=== PATIENT | male | born 1975 | race Caucasian/White ===

== ENCOUNTER → 2024-06-03 | Outpatient (CLI) | payer BC, SELFPAY ==
[2024-06-03 12:51] LABS: Absolute Lymphocyte Count 1.55 X10^3/uL (0.83-4.51); Absolute Neutrophil Count 4.7 X10^3/uL (2.0-7.7); Basophil# 0.03 X10^3/uL; Basophil% 0.4 % (0-1); Eosinophil# 0.06 X10^3/uL; Eosinophils% 0.9 % (0-5); Hematocrit 48.6 % (40-54); Hemoglobin 16.5 g/dL (13.0-16.5); Lymphocyte # 1.55 X10^3/ul (0.83-4.51); Lymphocyte % 22.6 % (19-41); Mean Corpuscular Hgb 29.7 pg (27.0-32.0); Mean Corpuscular Volume 87.6 fL (80-94); Mean Platelet Vol. 9.7 fl (6.2-12.0); Monocyte# 0.56 X10^3/uL; Monocyte% 8.2 % (0-10); NRBC Flagged by Analyzer 0 % (0-5); Neutrophil # 4.65 X10^3/uL (2.7-7.7); Neutrophil % 67.6 % (47-70); Platelet Count 235 K/mm3 (150-450); RBC Distribution Width SD 38.5 fl (35.1-43.9); Red Blood Count 5.55 M/mm3 (4.6-6.2); White Blood Count 6.9 K/mm3 (4.4-11.0)
[2024-06-03 13:28] LABS: ALB/GLOB Ratio 1.1 RATIO (0.9-2.4); AST(SGOT) 26 U/L (15-37); Alanine Aminotransfer ALT/SGPT 38 U/L (16-61); Albumin, Serum 3.7 g/dL (3.2-5.0); Alkaline Phosphatase 72 U/L (45-117); Anion Gap 3 (5-15); BUN 15 mg/dL (7-18); Calcium,Total 8.7 mg/dL (8.5-10.1); Chloride 107 mmol/L (98-107); Cholesterol 248 mg/dL (200); EST Glomerular Filtration Rate 85 mL/min (>60); Est Glom Filt Rate - Afr Amer 103 mL/min (>60); Globulin 3.5 g/dL (2.2-4.2); Glucose 91 mg/dL (74-106); High Density Lipoprotein 64 mg/dL; PSA,Total - Annual Screen 0.41 ng/mL (0.00-4.00); Potassium 4.1 mmol/L (3.5-5.1); Protein, Total 7.2 g/dL (6.4-8.2); Sodium Level 137 mmol/L (136-145); Triglycerides 127 mg/dL; Very Low Density Lipoprotein 25 mg/dL (5-40)
[2024-06-03 14:53] LABS: Hemoglobin A1c 4.8 % (3.8-5.6)
== END | disposition home or self-care (01) ==
LOC: VSLAB 09:17
PROVIDERS: Visit Provider Family Medicine
DX: Z13.6 Encounter for screening for cardiovascular disorders (principal); Z13.228 Encounter for screening for other metabolic disorders; Z12.5 Encounter for screening for malignant neoplasm of prostate
CPT/HCPCS: 36415; 80053; 80061; 83036; 84153; 84443; 85025; G0103

== ENCOUNTER 2024-08-03 07:27 | Day surgery (SDC) | payer BC, SELFPAY ==
[2024-08-03] VITALS (8 sets, daily range): BP systolic 104–118; BP diastolic 73–89; PULSE 16–78; RESP 16; TEMP 36.1–37; O2SAT 95–100; BMI 25.8
--- OUTSIDE RECORDS SUMMARY | 2024-08-03 07:33 | XMS RPT_ITS | CCD ---
Author Organization [facility] Inform ion Partnership [facility] Care Team Providers Care Press Writer Name Role Phone Unavailable Primary Care Provider REBECA Brenner Referring Unavailable SVETA DASILVA Attending Unavailabl e Medications Current Medications Medication Drug Class(es) Dates Sig (Normalized) Sig (Original) oxymetazoline hydrochloride 10 mg/ml topical cream (1 source) Start: 02-18-2024 oxymetazoline (RHOFADE) 1 % crea Apply a pea-sized amount to entire face once daily. 30 g 4 02/18/2024 Active Problems Active Problems Problem Classification Problem Date Documented Da te Episodic/Chronic Joint disorders and dislocations; trauma-related (1 source) Traumatic arthropathy of the hand; Translations: [Traumatic arthropathy, unspecified hand] Onset: 05-02-2010 05-02-2010 Chronic Other inflammatory condition of skin (1 source) Rosacea; Translations: [Rosacea, unspecified] 02-18-2024 Chronic Other inflammatory condition of skin (1 source) Rosacea, unspecified; Translations: [Rosacea] Onset: 02-18-2024 Chronic Residual codes; unclassified (1 source) Patient encounter status; Translations: [Encounter for cosmetic surgery] 02-18-2024 Episodic Residual codes; unclassified (1 source) Encounter for cosmetic surgery; Translations: [Encounter for cosmetic procedure] Onset: 02-18-2024 Episodic Past or Other Problems Problem Classification Problem Date Documented Da te Episodic/Chronic Other connective tissue disease (1 source) Pain in limb; Translations: [Pain in unspecified limb] Onset: 05-02-2010 05-02-2010 Episodic Results Test Name Value Interpretation Reference Range Facil ity CNOVon 02-18-2024 CNOV Office Visit (DERBMN ) KAY RAMEY ([id number]) 1975 M Date Time Provider Department 02/18/24 2:30 PM SVETA DASILVA During your visit today, we recorded the following information about you: Sveta Dasilva MD 02/18/2024 4:14 PM Signed New Cosmetic Patient Kay Ramey male presents seeking treatment for and further management of rosacea. 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 Examination of the face revealed: - Background erythema with overlying telangiectases on central face Photos obtained: yes A/P: 1. Rosacea, telangiectasias -Discussed rosacea and potential triggers including: sunlight, caffeine, spicy food, alcohol, chocolate. -Recommend avoidance of triggers and daily photoprotection -Start Rhofade to affected areas on bilateral cheeks- [facility] -Consider V beam to improve appearance of lesions, quoted 400 per treatment, needs approximately 4-6 treatments. -Laser reviewed at length including treatment expectations, need for multiple treatment and risks including pain, swelling, redness, blistering, hyper/hypopigmentation, texture change, scarring. - patient understands no treatment with cunningham- states he does have slight cunningham today and still would like to undergo treatment. He understands risks and would like to proceed LASER SURGERY PROCEDURAL TIME OUT: Time out verification includes: Audible time-out documented: Yes. Time: 2:59 PM Two Patient Identifiers Correct side and site marking Accurate Consent Agreement on the procedure to be done Correct Positioning Imaging and Test Results Properly Labeled and Displayed if applicable Safety Precautions Based on Patient History or Medication ANESTHETIC: Raffaeleller DX: Rosacea LOCATION: cheeks LASER PROCEDURE: Non-Ablative Laser Phototherapy: PROTECTIVE EYEWEAR APPLIED TO PATIENT'S EYES: goggles. ALL PERSONNEL IN THE ROOM ARE WEARING PROTECTIVE GOGGLES SPECIFIC TO THE LASER WAVELENGTH FOR THIS TREATMENT. TREATMENT #: 7 (last 2013) LASER: V BEAM SPOT SIZE:10 mm; ENERGY FLUENCE: 7J/cm2; MODE (TIME): 10 msec; SPRAY DELAY: 30/20;NUMBER OF PULSES: 197 COMMENTS: Patient tolerated procedure well. and Post care instructions provided, understanding verbalized. Sign Out Discussion: Completed Post op instructions given / with verbal understanding Skin Care after Laser Treatment. Charge Code: 400 vbeam Return to clinic for vbeam in fall The documentation for this note was completed by Usha Vernon RN acting as scribe for Sveta Dasilva MD. February 18, 2024 2:33 PM. I agree with the Chief Complaint, ROS, and Past Histories independently gathered by the clinical technology support analyst and the remaining scribed note accurately describes my personal service to the patient. Sveta Dasilva MD. February 18, 2024 Usha Vernon, [facility] 02/18/2024 2:52 PM Signed V-beam Post Care Instructions It is normal for the skin to be red and swollen after your laser treatment. Most of the redness and swelling subsides within 24 to 48 hours, but occasionally can last for up to one week. -It is fine to wear makeup on the treated area the day after treatment -Do not rub, scratch, or pick at the treated area -You may apply ice to reduce swelling and discomfort for the first 4 hours after your treatment- it is best to ice immediately after your treatment and for 10 minutes of each hour for the 4 hours after your treatment -Do not exercise for 24 hours after your treatment -Please call the office immediately if the area becomes tender, reddened or shows signs of infection. - Avoid exposure to the sun. If sun exposure is expected, apply an SPF 30 or higher sunblock to prevent pigmentation changes until the lesion is healed. Care Of The Treated Area -You can apply a gentle moisturizer or Aqpahor/Vaseline to the treated area. It is important to keep the area moist until healed. -Showers are permitted, but gently pat the area dry. Do not rub with a towel or washcloth as the area is extremely delicate while the bruising (purpura) are present. -Any discomfort you may have (usually not lasting more than a few hours, if any) can be relieved with acetaminophen (Tylenol) or ice packs. If you have any questions or concern, please call the office where you had your treatment. Referring Provider: REBECA REYES [[id number]] Allergies As of (more content not included)... Normal [facility] Encounters Encounter Date Encounter Type Care Provider Facility Start: 02-18-2024 End: 02-19-2024 ambulatory REBECA REYES Facility:[facility] Start: 02-18-2024 End: 02-18-2024 Patient encounter procedure Sveta Dasilva MD Work Phone: Dermatology Comment on above: Rosacea (Primary Dx) ; Encounter for cosmetic procedure Plan of Treatment Date Care Activity Detail Author Start: 06-13-2024 Influenza vaccination Influenz a Vaccine (Season Ended) [facility] Start: 10-13-2023 Behavioral Health Screening Behavioral Health Screening [facility] Start: 06-13-2023 Covid-19 Vaccine ( season) Covid-19 Vaccine ( season) [facility] Start: 2021 Diabetes Screening Diabetes Screenin g [facility] Start: 2021 Screening for malign ant neoplasm of colon [facility] Start: 2011 Lipid panel Lipid Screening [facility] Start: 1995 Hepatitis B Vaccine (1 of 3 - 19+ 3-dose series) Hepatitis B Vaccine (1 of 3 - 19+ 3-dose series) [facility] Start: 1995 Urine microalbumin profile DTa P,Tdap,Td Vaccine (1 - Tdap) [facility] Start: 1994 Hepatitis C screening Hepatitis C Sc linda [facility] Start: 1994 HIV screening HIV Screening [facility] Social History Date Type Detail Facility Tobacco smoking stat us NHIS Tobacco smoking consumption unknown [facility] Start: 02-18-2024 History of Social function [facility] Start: 02-18-2024 Area Deprivation Index [facility] National Score (1-10 0), lower number is lower risk 54 [facility] Start: 1975 Sex Assigned At Not on file [facility] Progress note 02-18-2024 Note Date & Type Note Facility 02-18-2024 Note HNO ID: [id number] Author: SVETA DASILVA MD Service: ? Author Type: Physician Type: Progress Notes Filed: 02/18/2024 16:14 Note Text: New Cosmetic Patient Kay Ramey male presents seeking treatment for and further management of rosacea. 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 Examination of the face revealed: - Background erythema with overlying telangiectases on central face Photos obtained: yes A/P: 1. Rosacea, telangiectasias -Discussed rosacea and potential triggers including: sunlight, caffeine, spicy food, alcohol, chocolate. -Recommend avoidance of triggers and daily photoprotection -Start Rhofade to affected areas on bilateral cheeks- [facility] -Consider V beam to improve appearance of lesions, quoted 400 per treatment, needs approximately 4-6 treatments. -Laser reviewed at length including treatment expectations, need for multiple treatment and risks including pain, swelling, redness, blistering, hyper/hypopigmentation, texture change, scarring. - patient understands no treatment with cunningham- states he does have slight cunningham today and still would like to undergo treatment. He understands risks and would like to proceed LASER SURGERY PROCEDURAL TIME OUT: Time out verification includes: Audible time-out documented: Yes. Time: 2:59 PM Two Patient Identifiers Correct side and site marking Accurate Consent Agreement on the procedure to be done Correct Positioning Imaging and Test Results Properly Labeled and Displayed if applicable Safety Precautions Based on Patient History or Medication ANESTHETIC: Chiller DX: Rosacea LOCATION: cheeks LASER PROCEDURE: Non-Ablative Laser Phototherapy: PROTECTIVE EYEWEAR APPLIED TO PATIENT'S EYES: goggles. ALL PERSONNEL IN THE ROOM ARE WEARING PROTECTIVE GOGGLES SPECIFIC TO THE LASER WAVELENGTH FOR THIS TREATMENT. TREATMENT #: 7 (last 2013) LASER: V BEAM SPOT SIZE:10 mm; ENERGY FLUENCE: 7J/cm2; MODE (TIME): 10 msec; SPRAY DELAY: 30/20;NUMBER OF PULSES: 197 COMMENTS: Patient tolerated procedure well. and Post care instructions provided, understanding verbalized. Sign Out Discussion: Completed Post op instructions given / with verbal understanding Skin Care after Laser Treatment. Charge Code: 400 vbeam Return to clinic for vbeam in fall The documentation for this note was completed by Usha Vernon RN acting as scribe for Sveta Dasilva MD. February 18, 2024 2:33 PM. I agree with the Chief Complaint, ROS, and Past Histories independently gathered by the clinical technology support analyst and the remaining scribed note accurately describes my personal service to the patient. Sveta Dasilva MD. February 18[facility]24 Patient Instructions Note Date & Type Note Facility 02-18-2024 Usha Barrett RN - 02/18/2024 2:52 PM EDT V-beam Post Care Instructions It is normal for the skin to be red and swollen after your laser treatment. Most of the redness and swelling subsides within 24 to 48 hours, but occasionally can last for up to one week. -It is fine to wear makeup on the treated area the day after treatment -Do not rub, scratch, or pick at the treated area -You may apply ice to reduce swelling and discomfort for the first 4 hours after your treatment- it is best to ice immediately after your treatment and for 10 minutes of each hour for the 4 hours after your treatment -Do not exercise for 24 hours after your treatment -Please call the office immediately if the area becomes tender, reddened or shows signs of infection. - Avoid exposure to the sun. If sun exposure is expected, apply an SPF 30 or higher sunblock to prevent pigmentation changes until the lesion is healed. Care Of The Treated Area -You can apply a gentle moisturizer or Aqpahor/Vaseline to the treated area. It is important to keep the area moist until healed. -Showers are permitted, but gently pat the area dry. Do not rub with a towel or washcloth as the area is extremely delicate while the bruising (purpura) are present. -Any discomfort you may have (usually not lasting more than a few hours, if any) can be relieved with acetaminophen (Tylenol) or ice packs. If you have any questions or concern, please call the office where you had your treatment. documented in this encounter [facility] History of Present illness Narrative 02-18-2024 Sveta Dasilva MD - 02/18/2024 2:30 PM EDT Note Date & Type Note Facility 02-18-2024 History of Presen t illness Narrative New Cosmetic Patient Kay Ramey male presents seeking treatment for and further management of rosacea. 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 Examination of the face revealed: - Background erythema with overlying telangiectases on central face Photos obtained: yes A/P: 1. Rosacea, telangiectasias -Discussed rosacea and potential triggers including: sunlight, caffeine, spicy food, alcohol, chocolate. -Recommend avoidance of triggers and daily photoprotection -Start Rhofade to affected areas on bilateral cheeks- [facility] -Consider V beam to improve appearance of lesions, quoted 400 per treatment, needs approximately 4-6 treatments. -Laser reviewed at length including treatment expectations, need for multiple treatment and risks including pain, swelling, redness, blistering, hyper/hypopigmentation, texture change, scarring. - patient understands no treatment with cunningham- states he does have slight cunningham today and still would like to undergo treatment. He understands risks and would like to proceed ----- LASER SURGERY PROCEDURAL TIME OUT: Time out verification includes: Audible time-out documented: Yes. Time: 2:59 PM Two Patient Identifiers Correct side and site marking Accurate Consent Agreement on the procedure to be done Correct Positioning Imaging and Test Results Properly Labeled and Displayed if applicable Safety Precautions Based on Patient History or Medication ANESTHETIC: Giovanny DX: Rosacea LOCATION: cheeks LASER PROCEDURE: Non-Ablative Laser Phototherapy: PROTECTIVE EYEWEAR APPLIED TO PATIENT'S EYES: goggles. ALL PERSONNEL IN THE ROOM ARE WEARING PROTECTIVE GOGGLES SPECIFIC TO THE LASER WAVELENGTH FOR THIS TREATMENT. TREATMENT #: 7 (last 2013) LASER: V BEAM SPOT SIZE:10 mm; ENERGY FLUENCE: 7J/cm2; MODE (TIME): 10 msec; SPRAY DELAY: 30/20;NUMBER OF PULSES: 197 COMMENTS: Patient tolerated procedure well. and Post care instructions provided, understanding verbalized. Sign Out Discussion: Completed Post op instructions given / with verbal understanding Skin Care after Laser Treatment. Charge Code: 400 vbeam Return to clinic for vbeam in fall The documentation for this note was completed by Usha Vernon RN acting as scribe for Sveta Dasilva MD. February 18, 2024 2:33 PM. I agree with the Chief Complaint, ROS, and Past Histories independently gathered by the clinical technology support analyst and the remaining scribed note accurately describes my personal service to the patient. Sveta Dasilva MD. February 18, 2024 documented in this encounter [facility] Evaluation note Note Date & Type Note Facility Evaluation note Diagnosis Rosacea- Primary Encounter for cosmetic procedure documented in this encounter [facility] Summary Purpose Family History No Family History Records Found Advance Directives No Advanced Directives Records Found Additional Source Comments Source Comments (unrecognize d section and content) In the event this informatio n is protected by the Federal Confidentiality of Alcohol and Drug Abuse Patient Records regulations: The Federal rules restrict any use of the information to criminally investigate or prosecute any alcohol or drug abuse patient.[facility] Reason for Visit (unrecogniz ed section and content) Reason Comments Consult Specialty Diagnoses / Procedures Referred By Contac t Referred To Contact PLASTIC SURGERY Diagnoses VBEAM CONSULT Procedures VBEAM CONSULT Rebeca Reyes MD [address] [place] [address] [facility] [address] [place] [address] Referral ID Status Reason Start Date Expiration Date V isits Requested Visits Authorized [id number] Closed Financial Clearance Required - Self Pay OON/Self Pay Override 12/31/2023 02/29/2024 1 1 (unrecognized sect ion and content) No Status Records Found INFORMATION SOURCE (unrecogn ized section and content) DATE CREATED AUTHOR 02/23/[address] [facility] FOR RECORDS PERTAINING TO PATIENTS WHO ARE OR HAVE BEEN ENROLLED IN A CHEMICAL DEPENDENCY/SUBSTANCEABUSE PROGRAM, SOME INFORMATION MAY BE OMITTED. This clinical summary was aggregated from multiple sources. Caution should be exercised in using it in the provision of clinical care. This summary normalizes information from multiple sources, and as a consequence, information in this document may materially change the coding, format and clinical context of patient data. In addition, data may be omitted in some cases. CLINICAL DECISIONS SHOULD BE BASED ON THE PRIMARY CLINICAL RECORDS. [employer] [facility]. provides no warranty or guarantee of the accuracy or completeness of information in this document.
--- NOTE | 2024-08-03 08:27 | PRE.ANES_ITS ---
ASA Classification* ASA Classification ASA Classification: 2 Assessment & Plan Anesthesia* Anesthesia Assessment Anesthesia Assessment: Discussed sedation and/or anesthesia options, risks, benefits, and alternatives with patient/parents/legal guardian/POA. Questions invited. The patient/parents/legal guardian/POA seems to understand and agrees to proceed with anesthesia plan. Reviewed the physical assessment, medical history, allergy history and patient home medications list prior to surgery/procedure/anesthetic and documented any changes. Performed airway and anesthesia risk assessments. Anesthesia Type Anesthesia Type: MAC History Source History Obtained from:: Patient and Chart Anesthesia Focused Assessment* Temperature: 97 F Pulse Rate: 76 Blood Pressure: 118/89 Respiratory Rate: 16 Pulse Ox: 100 Oxygen Delivery Method: Room Air Airway Assessment Mouth opens: >3 cm Mallampati Score: II Neck Range of motion (ROM): Full ROM Focused Labs Anesthesia Preop lab: CBC WBC 6.9 K/mm3 (4.4-11.0) 06/03/24 09:17 RBC 5.55 M/mm3 (4.6-6.2) 06/03/24 09:17 Hgb 16.5 g/dL (13.0-16.5) 06/03/24 09:17 Hct 48.6 % (40-54) 06/03/24 09:17 Plt Count 235 K/mm3 (150-450) 06/03/24 09:17 CHEMISTRY Potassium 4.1 mmol/L (3.5-5.1) 06/03/24 09:17 Sodium 137 mmol/L (136-145) 06/03/24 09:17 BUN 15 mg/dL (7-18) 06/03/24 09:17 Creatinine 1.00 mg/dL (0.70-1.30) 06/03/24 09:17 Glucose 91 mg/dL (74-106) 06/03/24 09:17 TSH 3.020 uIU/mL (0.358-3.740) 06/03/24 09:17 COAG Pre-Assessment Diagnosis/Proposed Procedure Planned Operative Procedure(s): cscope Anesthesia History Anesthesia History - full decator operator: Anesthesia History - full decator operator Hx Hospitalization No 07/29/24 15:24 Any Problems With Anesthesia No 07/29/24 15:24 Cholinesterase deficiency No 07/29/24 15:24 You/Your Family Experience No 07/29/24 15:24 fever (hyperthermia) with Relationship Recent Exposure to Contagious No 08/03/24 08:10 Disease Does patient have nerve No 07/29/24 15:24 stimulator Patient instructed to have device shut off --Does patient have Pacemaker No 08/03/24 08:10 or ICD? When Was Last Pacemaker Check QUESTION #4 FULL TEXT: You/Your Family Experience fever (hyperthermia) with Anesthesia Last Oral Intake Last Oral intake: Last Oral Intake NPO since 04:00 08/03/24 08:10 Meds taken in AM with sips of No 08/03/24 08:10 water? Meds patient instructed to take am of surgery Any additional information?: Yes NPO since: 04:00 (Patient finished prep at 4 AM.) PONV PONV - full decator operator: PONV - full decator operator Female No 07/29/24 15:24 HX of Motion Sickness No 07/29/24 15:24 HX of N/V After Surgery No 07/29/24 15:24 Non-Smoker Yes 07/29/24 15:24 Duration of Surgery greater No 07/29/24 15:24 than 60 minutes Number of Risk Factors 1 07/29/24 15:24 PONV Score Low Risk 07/29/24 15:24 Height & Weight Height & Weight: Anesthesia: Height & Weight Height 5 ft 11 in 08/03/24 08:10 Weight: 84 kg 08/03/24 08:10 Body Mass Index (BMI) 25.8 08/03/24 08:10 Respiratory Assessment Respiratory Assessment - full decator operator: Respiratory Tract Infection Hx - full decator operator Hx Respiratory Tract Infection No 07/29/24 15:24 STOP Sleep Apnea STOP Sleep Apnea - full decator operator: STOP Sleep Apnea - full decator operator Hx Hypertension No 07/29/24 15:24 Hx Sleep Apnea No 07/29/24 15:24 CPAP BIPAP Do you snore loudly (louder No 07/29/24 15:24 than talking or can be heard Do you often feel tired/ No 07/29/24 15:24 fatigued/ sleepy during daytime? Has anyone observed you stop No 07/29/24 15:24 breathing during sleep? STOP Results Negative 07/29/24 15:24 QUESTION #5 FULL TEXT : Do you snore loudly (louder than talking or can be heard through closed doors)? 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 Specify any problems Hx of Preganancy in last 3 N/A 07/29/24 15:24 Months Nurse Filling Out Transfusion NBUCHER 07/29/24 15:24 & Questions: Date: 07/29/24 07/29/24 15:24 Time: 1507/29/24 15:24 Patient unable to answer at this time (ie. confused, unrespo /Reproduction History /Reproductive History - full decator operator: /Reproductive Hx- full decator operator Hx Now No 07/29/24 15:24 Gestational Age (in weeks): EDC: Hx Hx Para Hx Section SAB No 07/29/24 15:24 PFSH Medical History (Updated 07/29/24 @ 15:28 by Amy Velasquez) Wears glasses Heartburn Gastric reflux Non-smoker History of stress test History of echocardiogram Hx of peptic ulcer Home Medications ?Medication ?Instructions ?Recorded ?Last Taken ?Type L.acidophilus,rhamnosus-B.breve-S.thermophilus 1 tab PO DAILY 07/29/24 Unknown History 3 billion cell chew tab Allergy/AdvReac Type Severity Reaction Status Date / Time No Known Allergies Allergy Verified 08/03/24 07:50 Family History (Updated 06/17/24 @ 08:42 by Ewa Wayne) Sister Colon polyps Father Myocardial infarction Mother Cancer Surgical History Hx of arthroscopic knee surgery Hx of hand surgery Hx of appendectomy Social History (Updated 06/17/24 @ 08:39 by Ewa Wayne) household members: spouse current occupational status: employed Smoking Status: Never smoker alcohol intake: current alcohol intake frequency: holidays/special occasions only substance use type: does not use Review of Systems (Anesthesia) ROS Narrative System reviewed and no additional complaints, except as documented.
--- NOTE | 2024-08-03 08:50 | PCM.HP.STD ---
HPI - General General Date of Admission: 08/03/24 Date of Service: 08/03/24 Chief Complaint: Screening colonoscopy HPI Narrative KAY RAMEY, is a 48 M who presents for elective screening colonoscopy. No prior colonoscopy. No recent GI symptoms or problems. It sounds as though his sister had colon polyps and his mother may have had colon cancer. [facility] Medical History Wears glasses Heartburn Gastric reflux Non-smoker History of stress test History of echocardiogram Hx of peptic ulcer Home Medications ?Medication ?Instructions ?Recorded ?Last Taken ?Type L.acidophilus,rhamnosus-B.breve-S.thermophilus 1 tab PO DAILY 07/29/24 Unknown History 3 billion cell chew tab Allergy/AdvReac Type Severity Reaction Status Date / Time No Known Allergies Allergy Verified 08/03/24 07:50 Family History Sister Colon polyps Father Myocardial infarction Mother Cancer Surgical History Hx of arthroscopic knee surgery Hx of hand surgery Hx of appendectomy Social History household members: spouse current occupational status: employed Smoking Status: Never smoker alcohol intake: current alcohol intake frequency: holidays/special occasions only substance use type: does not use Vital Signs Vital Signs Vital Signs: 08/03/24 08:10 08/03/24 08:10 08/03/24 08:32 Temperature 97 F L 97 F L Temperature Source Temporal Pulse Rate 76 76 Respiratory Rate 16 16 Respiratory Pattern Normal Blood Pressure 118/89 H 118/89 H Blood Pressure Mean 98 Blood Pressure Source Monitor Blood Pressure Position Semi-Fowlers Blood Pressure Location Left Arm Pulse Ox 100 100 Oxygen Delivery Method Room Air Room Air Weight Weight: 185 lb 3.013 oz Body Mass Index (BMI) 25.8 Physical Exam Narrative He is alert and oriented x 3. He is in no acute distress. Head is normocephalic and atraumatic. Pupils are equal round and reactive to light. Abdomen is soft, nontender nondistended. Assessment & Plan Assessment/Plan (1) Encounter for screening for malignant neoplasm of colon: PLAN: Plan The patient is a 48-year-old male in need of a screening colonoscopy. We discussed the details of the planned procedure and he wished to proceed. We also discussed the risks benefits and alternatives. Colonoscopy will begin momentarily. Charges/Coding Visit Charges Inpatient E&M: 19068 Init Hosp L1
--- NOTE | 2024-08-03 09:32 | PCM.POST.ANE ---
Anesthesia: Postop Eval I Current Vital Signs Temperature: 98.6 F Pulse Rate: 16 Blood Pressure: 104/73 Respiratory Rate: 16 Pulse Ox: 98 Oxygen Delivery Method: Room Air Assessment Airway patent: Yes Spontaneous unlabored respirations: Yes Mental status: Awake and Calm nausea: No Vomiting: No Anesthesia Complication: No Fluid Hydration Crystalloid volume administer (ml): 50 Total IV fluid infused: 50 Progress Note Anesthesia document: Postop Eval 1 completed: Yes
--- NOTE | 2024-08-03 09:36 | OP.COLON_ITS ---
Patient Name: Chris Nazario Procedure Date: 08/03/2024 8:46 AM Date of : 1975 Age: 48 Procedure: Colonoscopy Indications: Colon cancer screening in patient at increased risk: Family history of 1st-degree relative with colon polyps Providers: Sukh Tapia MD Medicines: Propofol per Anesthesia Patient Profile: Refer to note in patient chart for documentation of history and physical. Last Colonoscopy: none. The patient's first colonoscopy is today. Complications: No immediate complications. Estimated blood loss: None. Procedure: Pre-Anesthesia Assessment: - Prior to the procedure, a History and Physical was performed, and patient medications and allergies were reviewed. The patient's tolerance of previous anesthesia was also reviewed. The risks and benefits of the procedure and the sedation options and risks were discussed with the patient. All questions were answered, and informed consent was obtained. Prior Anticoagulants: The patient has taken no anticoagulant or antiplatelet agents. ASA Grade Assessment: I - A normal, healthy patient. After reviewing the risks and benefits, the patient was deemed in satisfactory condition to undergo the procedure. After I obtained informed consent, the scope was passed under direct vision. Throughout the procedure, the patient's blood pressure, pulse, and oxygen saturations were monitored continuously. The adult colonoscope was introduced through the anus and advanced to the cecum, identified by appendiceal orifice and ileocecal valve. The ileocecal valve, appendiceal orifice, and rectum were photographed. The entire colon was well visualized. The colonoscopy was performed without difficulty. The patient tolerated the procedure well. The quality of the bowel preparation was good. Moderate Sedation: See the other procedure note for documentation of moderate sedation with intraservice time. Scope In: 9:06:05 AM Scope Withdrawal Time 0 hours 11 minutes 9 seconds Scope Out: 9:24:01 AM Total Procedure Duration Time 0 hours 17 minutes 56 seconds Findings: The perianal and digital rectal examinations were normal. The entire examined colon appeared normal on direct and retroflexion views. Estimated blood loss: none. Impression: - The entire examined colon is normal on direct and retroflexion views. - No specimens collected. Recommendation: - Discharge patient to home (ambulatory). - High fiber diet indefinitely. - Discharge patient to home (ambulatory). - Repeat colonoscopy in 7-10 years for screening purposes. - Continue present medications. Procedure Code(s): --- Professional --- 77344, Colonoscopy, flexible; diagnostic, including collection of specimen(s) by brushing or washing, when performed (separate procedure) Diagnosis Code(s): --- Professional --- Z83.71, Family history of colonic polyps CPT copyright 2021 [employer]. All rights reserved. The codes documented in this report are preliminary and upon health actuary review may be revised to meet current compliance requirements. Sukh Tapia MD 08/03/2024 9:36:19 AM This report has been signed electronically. Number of Addenda: 0 Note Initiated On: 08/03/2024 8:46 AM
--- NOTE | 2024-08-03 11:46 | PCM.POSTANE2 ---
Anesthesia Postop Eval I Sum Postop Eval Completion status Anesthesia document: Postop Eval 1 completed: Yes Anesthesia Postop Eval I Summary Anesthesia Postop Eval I Summary: Anesthesia Postop Eval I: Assessment Summary Airway patent Yes 08/03/24 09:33 [email or web address] Spontaneous unlabored Yes 08/03/24 09:33 [email or web address] respirations Mental status Awake,Calm 08/03/24 09:33 [email or web address] nausea No 08/03/24 09:33 [email or web address] Vomiting No 08/03/24 09:33 [email or web address] Anesthesia Postop Eval I: Fluid Summary Crystalloid volume administer 50 08/03/24 09:33 [email or web address] (ml) Colloids volume administered ( ml) Blood Product volume administered (ml) Total IV fluid infused 50 08/03/24 09:33 [email or web address] Anesthesia Postop Eval I: Summary Notes Anesthesia Complication No 08/03/24 09:33 [email or web address] Anesthesia Complication Comment: Post-operative progress note Anesthesia: Postop Eval II Evaluation Mental status: Awake and Calm Pain Level: 0 nausea: No Vomiting: No Complications Anesthesia Complication: No
== END 2024-08-03 10:06 | disposition home or self-care (01) ==
LOC: EN 07:29 → AC 07:32
PROVIDERS: PCP Family Medicine; Referring Provider Surgery; Visit Provider Surgery
PROC: 0DJD8ZZ Inspection of Lower Intestinal Tract, Via Natural or Artificial Opening Endoscopic (ICD-10-PCS; CPT 45378; principal; 2024-08-03 08:25)
DX: Z12.11 Encounter for screening for malignant neoplasm of colon (principal); K21.9 Gastro-esophageal reflux disease without esophagitis; Z83.719 Family history of colon polyps, unspecified; Z90.49 Acquired absence of other specified parts of digestive tract
CPT/HCPCS: 45378; A4216; J2405